=== PATIENT | male | born 1985 | race Caucasian/White ===

== ENCOUNTER 2020-10-14 09:11 | Emergency (ER) | payer OTHER, SELFPAY ==
[2020-10-14 09:39] VITALS: BP 125/83; PULSE 75; RESP 16; TEMP 36.5; O2SAT 98; BMI 29.8
[2020-10-14 09:47] VITALS: O2SAT 97
--- NOTE | 2020-10-14 09:48 | XR_ITS ---
WS: [id number] Portable AP upright chest, 10/14/2020 Clinical Data: body aches/SOB Comparison: None. Findings: No nodules, masses or effusions are seen. The heart is normal. The pulmonary vascularity is not increased. No pneumonia or pneumothorax is seen. XR/XR chest 1V portable [id number] Impression: Negative chest.
--- NOTE | 2020-10-14 09:48 | W.ED.GENADLT ---
HPI - General Adult General: Chief complaint: General Medical Stated complaint: increased SOB, vaccined yesterday Time Seen by Provider: 10/14/20 09:44 History of Present Illness: HPI narrative: Patient is a 35-year-old male comes to the ED with body aches. He decided to get the second maternal Covid vaccine yesterday. Today woke up with body aches and he had an episode of some shortness of breath. Patient only feels shortness of breath upon some exertion. He reports he just feels under the weather, like he is starting to get the flu. Associated symptoms: Reports dyspnea (episode when up moving around-resolved); Deny chest pain, headache(s), nausea, rash, palpitations or vomiting Review of Systems Const: Reports: body aches; Denies: fever(s), chills or fatigue Eyes: Denies: change in vision or eye discomfort ENMT: Denies: throat pain, odynophagia, nasal discharge or nasal congestion Card: Denies: chest pain, palpitations, edema, swelling of feet/ankles, dyspnea on exertion or orthopnea Resp: Reports: dyspnea (episode when up moving around-resolved); Denies: productive cough or non-productive cough GI: Denies: abdominal pain, nausea, vomiting, diarrhea, constipation or hematochezia : Denies: flank pain, difficulty urinating, dysuria or hematuria Musc: Denies: neck pain, back pain or extremity swelling Skin/Breast: Denies: rash or new lesions Neuro: Denies: headache(s), numbness in extremities or weakness in extremities Physical Exam Const: COMMON NORMALS: no acute distress, patient oriented x3, healthy appearing and alert GENERAL APPEARANCE: cooperative and comfortable HENMT: COMMON NORMALS: normocephalic HEAD & SCALP: normocephalic MOUTH: Normal oral and palatal mucosa present THROAT: posterior oropharynx normal and uvula midline Eye: COMMON NORMALS: Equal, round and reactive pupils present PUPIL: Yes Equal, round and reactive pupils present Neck/C-Spine: COMMON NORMALS: supple GENERAL: Yes normal visual inspection Resp: COMMON NORMALS: normal respiratory effort, No retractions, No use of accessory muscles and clear to auscultation bilaterally AUSCULTATION: clear to auscultation bilaterally Cardio: COMMON NORMALS: regular rate, regular rhythm, S1 normal heart sound present, S2 normal heart sound present, No gallops present (Cardio), No clicks present (Cardio), No murmurs present (Cardio) and Peripheral pulses 2+ throughout RATE: regular rate RHYTHM: regular rhythm HEART SOUNDS: S1 normal heart sound present and S2 normal heart sound present PERIPHERAL PULSES: Peripheral pulses 2+ throughout GI: COMMON NORMALS: Normal to inspection, nondistended, normoactive bowel sounds present, Soft to palpation, non-tender and no masses PALPATION: Yes Soft to palpation : COMMON NORMALS: Yes no CVA tenderness BLADDER/KIDNEY EXAM: Yes no CVA tenderness Back/Pelvis: COMMON NORMALS: no CVA tenderness Extremity: COMMON NORMALS: normal to inspection Neuro: COMMON NORMALS: patient oriented x3 and moves all extremities SENSORIUM/ORIENTATION: Yes alert Skin: GENERAL SKIN EXAM: dry skin Course Vital Signs: Vital signs: Vital Signs Temperature 97.7 F 10/14/20 09:39 Pulse Rate 75 10/14/20 09:39 Respiratory Rate 16 10/14/20 09:39 Blood Pressure 125/83 10/14/20 09:39 Pulse Oximetry 97 10/14/20 09:47 MDM - General Adult MDM Narrative: Medical decision making narrative: Patient is a 35-year-old male comes to the ED with an episode of shortness of breath and body aches after getting second Covid vaccine yesterday. Patient is a healthy 35-year-old male that appears in no acute distress upon exam. His lungs are clear to auscultation bilaterally. Vitals are stable with respirations 16 and O2 sat 98% on room air. Chest x-ray shows no acute findings. Patient stable for discharge. He is diagnosed with myalgia and shortness of breath after Covid vaccination. Return to ED precautions given. Follow-up with his PCP in 7 to 10 days reevaluation. Patient understood agree with plan. Imaging Data^: CXR: Attestation: I personally reviewed and interpreted this imaging study as follows: Radiologist's impression: [address] [address] XRay Report Signed Patient: Sam Delong Iv Unit #: [id number] : 1985 Age/Sex: 35 / M ADM Date: 10/14/20 Loc: ER Room/Bed: Attending Dr: Ordering Provider/Ordering MD: Sam Brannon Date of Service: 10/14/20 Procedure(s): XR chest 1V portable [id number] Accession Number(s): [id number] Report Number: [id number] WS: [id number] Portable AP upright chest, 10/14/2020 Clinical Data: body aches/SOB Comparison: None. Findings: No nodules, masses or effusions are seen. The heart is normal. The pulmonary vascularity is not increased. No pneumonia or pneumothorax is seen. XR/XR chest 1V portable [id number] Impression: Negative chest. Dictated By: Kareen Malone MD Signed By: Kareen Malone MD Signed Date/Time: 10/14/201018 DD/ 18 Discharge Plan Discharge Patient Disposition: Home Clinical Impression: Myalgia after COVID-19 vaccination, Shortness of breath after COVID-19 vaccination Condition: Stable Discharge Orders: Discharge ED (Routine); Ordered 10/14/20 Ordered By: Sam Brannon Referrals: Westley Iyer DO [Primary Care Provider] - Discharge Diet: Regular Discharge Activity: Resume usual activity Activity Restrictions/Additional Instructions: Follow-up with medical provider as directed in 7 to 10 days for reevaluation. Return to the ER or your medical provider if condition worsens. Please read and understand discharge instructions. Thank you for choosing [facility] for your healthcare needs today. Please realize this is an emergency room and that we are providing you with a medical screening exam and this may not be complete and all inclusive of all the testing and or work up that you may need to determine your ailment or severity of your illness. It is very important that you follow up as instructed or that you return to the Emergency Department should you have concerns or if your condition changes or worsens in any way. Coding Level of Care Code ED Document Management Technician for Vivian Fwalexa Exam Comprehensive
== END 2020-10-14 11:39 | disposition home or self-care (01) ==
PROVIDERS: Emergency Provider Physician Assistant; PCP Family Medicine
DX: R06.02 Shortness of breath (principal); M79.10 Myalgia, unspecified site
CPT/HCPCS: 71045; 99282

== ENCOUNTER → 2020-12-21 14:49 | Outpatient (BNVA) | payer OTHER, SELFPAY | PROVIDERS: PCP Family Medicine; Visit Provider Family Medicine | DX: R53.83 Other fatigue (principal); R68.82 Decreased libido; Z13.220 Encounter for screening for lipoid disorders; Z13.6 Encounter for screening for cardiovascular disorders; Z76.89 Persons encountering health services in other specified circumstances | CPT/HCPCS: 80053; 80061; 84402; 85025 ==

== ENCOUNTER → 2023-02-19 08:45 | Outpatient (BNVA) | payer BC, SELFPAY | PROVIDERS: PCP Family Medicine; Visit Provider Family Medicine | DX: L98.9 Disorder of the skin and subcutaneous tissue, unspecified (principal); Z00.00 Encounter for general adult medical examination without abnormal findings | CPT/HCPCS: 80053; 80061; 85025; 86695; 86696; 86787 ==